=== PATIENT | female | born 1995 | race Two or more races ===

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

== ENCOUNTER 2017-04-17 19:49 | Emergency (ER) | payer OTHER ==
[~2017-04-17] VITALS: Ht 162.6 cm; Wt 66.2 kg
[2017-04-17] MEDS ORDERED: ACETAMINOPHEN 500 MG TABLET PO ONE ×2 (20:02→22:30)
[2017-04-17] MEDS ORDERED: IV NORMAL SALINE 1,000ML 1,000 ML IV ONE (20:30)
[2017-04-17] MEDS ORDERED: MAGNESIUM HYDROXIDE 2,400 MG/30 ML ORAL.SUSP. PO ONE (20:30)
[2017-04-17 21:49] VITALS: BP 121/81
--- NOTE | 2017-04-17 22:08 | PHYS DOC ---
Past History Past Medical History: No Pertinent History Past Surgical History: No Surgical History Smoking: Non-smoker Alcohol Use: None Drug Use: None Adult General Chief Complaint Chief Complaint: RECTAL BLEED HPI HPI Patient is a 21 year old F who presents with constipation, small amount of rectal bleeding, and moderate pain. She did deliver a baby 2 weeks ago and has had a history of constipation. She has not been taking daily stool softeners and has used pain medications occasionally. She did have a labial tear but no rectal involvement. Review of Systems Review of Systems Constitutional: Denies fever or chills [] Eyes: Denies change in visual acuity, redness, or eye pain [] HENT: Denies nasal congestion or sore throat [] Respiratory: Denies cough or shortness of breath [] Cardiovascular: No additional information not addressed in HPI [] GI: Negative except history of present illness : Denies dysuria or hematuria [] Musculoskeletal: Denies back pain or joint pain [] Integument: Denies rash or skin lesions [] Neurologic: Denies headache, focal weakness or sensory changes [] Endocrine: Denies polyuria or polydipsia [] Family History Family History Noncontributory Current Medications Current Medications Current Medications Medications (Trade) Dose Ordered Sig/Chris Start Time Stop Time Status Last Admin Dose Admin Acetaminophen (Tylenol) 500 mg STK-MED ONCE 04/17/17 20:02 04/17/17 20:03 DC Magnesium Hydroxide (Milk Of Magnesia) 2,400 mg 1X ONCE 04/17/17 20:30 04/17/17 20:31 DC 04/17/17 20:44 2,400 MG Sodium Chloride 1,000 ml @ 1,000 mls/hr 1X ONCE 04/17/17 20:30 04/17/17 21:29 DC 04/17/17 21:06 1,000 MLS/HR Allergies Allergies Allergies Coded Allergies Type Severity Reaction Last Updated Verified No Known Drug Allergies 01/08/16 No Physical Exam Physical Exam Constitutional: Well developed, well nourished, no acute distress, non-toxic appearance. [] HENT: Normocephalic, atraumatic, bilateral external ears normal, oropharynx moist, no oral exudates, nose normal. [] Eyes: PERRLA, EOMI, conjunctiva normal, no discharge. [] Neck: Normal range of motion, no tenderness, supple, no stridor. [] Cardiovascular:Heart rate regular rhythm, no murmur [] Lungs & Thorax: Bilateral breath sounds clear to auscultation [] Abdomen: Bowel sounds normal, soft, no tenderness, no masses, no pulsatile masses. [] The rectum was visualized without abnormalities Skin: Warm, dry, no erythema, no rash. [] Back: No tenderness, no CVA tenderness. [] Extremities: No tenderness, no cyanosis, no clubbing, ROM intact, no edema. [] Neurologic: Alert and oriented X 3, normal motor function, normal sensory function, no focal deficits noted. [] Psychologic: Affect normal, judgement normal, mood normal. [] Current Patient Data Vital Signs Vital Signs Date Time Temp Pulse Resp B/P (MAP) Pulse Ox O2 Delivery O2 Flow Rate FiO2 04/17/17 20:20 98.1 105 22 136/86 (103) 98 Room Air EKG EKG [] Radiology/Procedures Radiology/Procedures [] Course & Med Decision Making Course & Med Decision Making Pertinent Labs and Imaging studies reviewed. (See chart for details) She did have a bowel movement prior to receiving milk Magnesia. Her symptoms were moderately improved thereafter. Dragon Disclaimer Dragon Disclaimer This chart was dictated in whole or in part using Voice Recognition software in a busy, high-work load, and often noisy Emergency Department environment. It may contain unintended and wholly unrecognized errors or omissions. Departure Departure: Impression: Primary Impression: Constipation Disposition: 01 HOME, SELF-CARE Condition: STABLE Referrals: KENISHA ORTEGA DO (PCP) Patient Instructions: Constipation, Adult Additional Instructions: Liliana was seen in the emergency department for constipation. No emergency medical condition was found on history or physical exam. She did have a bowel movement with mild relief. She was given IV fluids. She was advised to use MiraLAX daily or twice daily in order to keep her stool soft. She is advised to follow-up with her primary care doctor in the next 3-5 days for further management. Problem Qualifiers Primary Impression: Constipation Constipation type: unspecified constipation type Qualified Codes: K59.00 - Constipation, unspecified ABNER MICHELLE MD Apr 17, 2017 22:08
== END 2017-04-17 22:17 | disposition home or self-care (01) ==
LOC: ER 19:49
DX: O90.89 Other complications of the puerperium, not elsewhere classified (principal); K59.00 Constipation, unspecified; K62.5 Hemorrhage of anus and rectum
CPT/HCPCS: 96360; 99284-25; J7030

== ENCOUNTER 2017-09-28 17:31 | Emergency (ER) | payer OTHER ==
[~2017-09-28] VITALS: Ht 160 cm; Wt 61.2 kg
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
[2017-09-28] MEDS ORDERED: HYDR-79 PO (18:03)
[2017-09-28] MEDS ORDERED: oxyCODONE/APAP 5/325 1 TAB TABLET PO ONE (18:15)
[2017-09-28 18:52] VITALS: BP 123/81
[2017-09-28] MEDS ORDERED: ACETAMINOPHEN 500 MG TABLET PO ONE (19:15)
== END 2017-09-28 19:04 | disposition home or self-care (01) ==
LOC: ER 17:31
DX: G43.909 Migraine, unspecified, not intractable, without status migrainosus (principal); M43.6 Torticollis; V49.9XXA Car occupant (driver) (passenger) injured in unspecified traffic accident, initial encounter; Y93.89 Activity, other specified; Y99.8 Other external cause status; Y92.89 Other specified places as the place of occurrence of the external cause
CPT/HCPCS: 99283

== ENCOUNTER 2018-04-10 00:32 | Emergency (ER) | payer OTHER ==
[~2018-04-10] VITALS: Ht 160 cm; Wt 61.2 kg
[~2018-04-10 00:32] MED LIST changes: +HYDR-79 PO
[2018-04-10] MEDS ORDERED: KETOROLAC 30 MG/ML VIAL. IV ONE (01:00)
[2018-04-10] MEDS ORDERED: ACETAMINOPHEN 500 MG TABLET PO ONE (01:00)
[2018-04-10] MEDS ORDERED: IV NORMAL SALINE 1,000ML 1,000 ML IV SCH (01:00)
[2018-04-10] MEDS ORDERED: ONDANSETRON PF 4 MG/2 ML VIAL. ONE (01:03)
[2018-04-10] MEDS ORDERED: ONDANSETRON PF 4 MG/2 ML VIAL. IV ONE (01:30)
[2018-04-10 01:53] LABS: BASO % 0 % (0-3); EOS % 0 % (0-3); HEMATOCRIT 39.8 % (36.0-47.0); HEMOGLOBIN 13.8 g/dL (12.0-15.5); LYMPH % 8 % (24-48); MEAN CORPUSCULAR HEMOGLOBIN 29 pg (25-35); MEAN CORPUSCULAR HGB CONC 35 g/dL (31-37); MEAN CORPUSCULAR VOLUME 84 fL (79-100); MONO # 0.9 x10^3/uL (0.0-1.1); MONO % 7 % (0-9); NEUT # 10.9 x10^3uL (1.8-7.7); NEUT % 85 % (31-73); PLATELET COUNT 209 x10^3/uL (140-400); RED BLOOD COUNT 4.76 x10^6/uL (3.50-5.40); RED CELL DISTRIBUTION WIDTH 13.4 % (11.5-14.5); WHITE BLOOD COUNT 12.9 x10^3/uL (4.0-11.0)
[2018-04-10 02:05] LABS: BILIRUBIN,URINE NEG (NEG); CLARITY,URINE CLEAR; COLOR,URINE STRAW; GLUCOSE,URINE NEG (NEG); NITRITE,URINE NEG (NEG); UROBILINOGEN,URINE 0.2 mg/dL (0.2 mg/dL)
[2018-04-10 02:06] LABS: BACTERIA,URINE FEW /HPF (0-FEW); RBC,URINE OCC /HPF (0-2); SQUAMOUS EPITHELIAL CELL,UR FEW /LPF; WBC,URINE OCC /HPF (0-4)
[2018-04-10 02:10] LABS: ALBUMIN 3.4 g/dL (3.4-5.0); ALBUMIN/GLOBULIN RATIO 0.9 (1.0-1.7); CALCIUM 8.6 mg/dL (8.5-10.1); CREATININE 0.8 mg/dL (0.6-1.0); GFR 91.4; POTASSIUM 3.7 mmol/L (3.5-5.1); TOTAL BILIRUBIN 0.2 mg/dL (0.2-1.0); TOTAL PROTEIN 7.2 g/dL (6.4-8.2)
[2018-04-10 02:19] LABS: INFLUENZA A PATIENT NEGATIVE (NEGATIVE); INFLUENZA B PATIENT NEGATIVE (NEGATIVE)
[2018-04-10] MEDS ORDERED: IV NORMAL SALINE 50ML 50 ML ONE (02:33)
[2018-04-10] MEDS ORDERED: cefTRIAXone SODIUM 1 GM VIAL IV ONE (02:34)
[2018-04-10] MEDS ORDERED: [UNRECOGNIZED DRUG - OTHER] (02:47)
[2018-04-10] MEDS ORDERED: CEFD300C PO (04:58)
[2018-04-10] MEDS ORDERED: ONDA4TAB10 SL (04:58)
--- NOTE | 2018-04-10 04:59 | PHYS DOC ---
Past History Past Medical History: Anemia Past Surgical History: No Surgical History Smoking: Non-smoker Alcohol Use: None Drug Use: None Adult General Chief Complaint Chief Complaint: FLU SYMPTOM HPI HPI Patient is a 22-year-old female who presents with report of fever, nausea, vomiting, diarrhea, body aches and generalized weakness that is been present for close to a week. Patient states that she had gotten a flu shot last week and shortly after getting the flu shot she became ill. Patient states that her fevers have been running up to 103. She indicates she has been having a difficult time keeping fluids down due to the vomiting. She does complain of a headache that she rates at a 7 out of 10. She also complains of sore throat. Patient states that nothing has been improving her symptoms. Review of Systems Review of Systems Constitutional: Positive fever and chills[] Eyes: Denies change in visual acuity, redness, or eye pain [] HENT: Positive congestion and sore throat[] Respiratory: Positive dry cough[] Cardiovascular: No additional information not addressed in HPI [] GI: Denies abdominal pain. Complains of nausea with vomiting and diarrhea. [] : Denies dysuria or hematuria [] Musculoskeletal: Complains of diffuse body aches[] Integument: Denies rash or skin lesions [] Neurologic: Complains of headache[] All other systems were reviewed and found to be within normal limits, except as documented in this note. Current Medications Current Medications Current Medications Medications (Trade) Dose Ordered Sig/Chris Start Time Stop Time Status Last Admin Dose Admin Acetaminophen (Tylenol) 1,000 mg 1X ONCE 04/10/18 01:00 04/10/18 01:01 DC 04/10/18 01:17 1,000 MG Ceftriaxone Sodium 1 gm/ Sodium Chloride 50 ml @ 100 mls/hr 1X ONCE 04/10/18 03:00 04/10/18 03:30 DC 04/10/18 02:43 100 MLS/HR Ceftriaxone Sodium (Rocephin) 1 gm STK-MED ONCE 04/10/18 02:34 04/10/18 02:35 DC Ketorolac Tromethamine (Toradol 30mg Vial) 30 mg 1X ONCE 04/10/18 01:00 04/10/18 01:01 DC 04/10/18 01:16 30 MG Ondansetron HCl (Zofran) 4 mg STK-MED ONCE 04/10/18 01:03 04/10/18 01:04 DC Sodium Chloride 50 ml @ As Directed STK-MED ONCE 04/10/18 02:33 04/10/18 02:34 DC Allergies Allergies Allergies Coded Allergies Type Severity Reaction Last Updated Verified amoxicillin Allergy Intermediate 04/10/18 Yes Physical Exam Physical Exam Constitutional: Well developed, well nourished, no acute distress, non-toxic appearance. [] HENT: Normocephalic, atraumatic, bilateral external ears normal, oropharynx moist, no oral exudates, nose normal. [] Eyes: PERRLA, EOMI, conjunctiva normal, no discharge. [] Neck: Normal range of motion, no tenderness, supple, no stridor. [] Cardiovascular:Heart rate regular rhythm, no murmur [] Lungs & Thorax: Bilateral breath sounds clear to auscultation [] Abdomen: Bowel sounds normal, soft, no tenderness, no masses, no pulsatile masses. [] Skin: Warm, dry, no erythema, no rash. [] Back: No tenderness, no CVA tenderness. [] Extremities: No tenderness, no cyanosis, no clubbing, ROM intact, no edema. [] Neurologic: Alert and oriented X 3, normal motor function, normal sensory function, no focal deficits noted. [] Psychologic: Affect normal, judgement normal, mood normal. [] Current Patient Data Vital Signs Vital Signs Date Time Temp Pulse Resp B/P (MAP) Pulse Ox O2 Delivery O2 Flow Rate FiO2 04/10/18 02:58 100.4 84 18 98 Room Air Lab Results Laboratory Tests Test 04/10/18 01:17 04/10/18 01:30 White Blood Count 12.9 x10^3/uL (4.0-11.0) H Red Blood Count 4.76 x10^6/uL (3.50-5.40) Hemoglobin 13.8 g/dL (12.0-15.5) Hematocrit 39.8 % (36.0-47.0) Mean Corpuscular Volume 84 fL (79-100) Mean Corpuscular Hemoglobin 29 pg (25-35) Mean Corpuscular Hemoglobin Concent 35 g/dL (31-37) Red Cell Distribution Width 13.4 % (11.5-14.5) Platelet Count 209 x10^3/uL (140-400) Neutrophils (%) (Auto) 85 % (31-73) H Lymphocytes (%) (Auto) 8 % (24-48) L Monocytes (%) (Auto) 7 % (0-9) Eosinophils (%) (Auto) 0 % (0-3) Basophils (%) (Auto) 0 % (0-3) Neutrophils # (Auto) 10.9 x10^3uL (1.8-7.7) H Lymphocytes # (Auto) 1.0 x10^3/uL (1.0-4.8) Monocytes # (Auto) 0.9 x10^3/uL (0.0-1.1) Eosinophils # (Auto) 0.0 x10^3/uL (0.0-0.7) Basophils # (Auto) 0.0 x10^3/uL (0.0-0.2) Sodium Level 136 mmol/L (136-145) Potassium Level 3.7 mmol/L (3.5-5.1) Chloride Level 101 mmol/L (98-107) Carbon Dioxide Level 28 mmol/L (21-32) Anion Gap 7 (6-14) Blood Urea Nitrogen 14 mg/dL (7-20) Creatinine 0.8 mg/dL (0.6-1.0) Estimated GFR (Cockcroft-Gault) 91.4 BUN/Creatinine Ratio 18 (6-20) Glucose Level 94 mg/dL (70-99) Lactic Acid Level 1.8 mmol/L (0.4-2.0) Calcium Level 8.6 mg/dL (8.5-10.1) Total Bilirubin 0.2 mg/dL (0.2-1.0) Aspartate Amino Transferase (AST) 30 U/L (15-37) Alanine Aminotransferase (ALT) 43 U/L (14-59) Alkaline Phosphatase 105 U/L (46-116) Total Protein 7.2 g/dL (6.4-8.2) Albumin 3.4 g/dL (3.4-5.0) Albumin/Globulin Ratio 0.9 (1.0-1.7) L Influenza Type A (Rapid) Negative (NEGATIVE) Influenza Type B (Rapid) Negative (NEGATIVE) Group A Streptococcus Rapid Negative (NEGATIVE) Urine Collection Type Void Urine Color Straw Urine Clarity Clear Urine pH 7.0 Urine Specific Deloit 1.020 Urine Protein Neg (NEG-TRACE) Urine Glucose (UA) Neg mg/dL (NEG) Urine Ketones (Stick) Neg mg/dL (NEG) Urine Blood Neg (NEG) Urine Nitrite Neg (NEG) Urine Bilirubin Neg (NEG) Urine Urobilinogen Dipstick 0.2 mg/dL (0.2 mg/dL) Urine Leukocyte Esterase Neg (NEG) Urine RBC Occ /HPF (0-2) Urine WBC Occ /HPF (0-4) Urine Squamous Epithelial Cells Few /LPF Urine Bacteria Few /HPF (0-FEW) EKG EKG [] Radiology/Procedures Radiology/Procedures [] Course & Med Decision Making Course & Med Decision Making Pertinent Labs and Imaging studies reviewed. (See chart for details) [] Dragon Disclaimer Dragon Disclaimer This electronic medical record was generated, in whole or in part, using a voice recognition dictation system. Departure Departure: Impression: Primary Impression: Febrile illness, acute Disposition: 01 HOME, SELF-CARE Condition: STABLE Referrals: KENISHA ORTEGA DO (PCP) Patient Instructions: Fever, Adult, Nausea and Vomiting Scripts Ondansetron (ZOFRAN ODT) 4 Mg Tab.rapdis 1 TAB SL Q8HRS, #15 TAB Prov: IQRA LOVE Jr., DO 04/10/18 Cefdinir (CEFDINIR) 300 Mg Capsule 1 CAP PO BID, #20 CAP Prov: IQRA LOVE Jr., DO 04/10/18 IQRA LOVE Jr. DO Apr 10, 2018 04:59
--- NOTE | 2018-04-10 06:33 | RAD ---
PORTABLE CHEST 1V Clinical History: fever Technique: AP view of the chest was obtained at 04/10/2018 12:22 AM. Comparison: None. Findings: The cardiomediastinal silhouette is normal. The pulmonary vasculature is normal. The lungs and pleural margins are clear. Impression: No evidence of an acute cardiopulmonary process. Electronically signed by: Alfredo Hercules III, MD (04/10/2018 6:30 AM) [facility]
[2018-04-10 06:55] VITALS: BP 120/4
== END 2018-04-10 06:55 | disposition home or self-care (01) ==
LOC: ER 00:32
DX: R50.9 Fever, unspecified (principal); R11.2 Nausea with vomiting, unspecified; R19.7 Diarrhea, unspecified; R51 Headache; M79.10 Myalgia, unspecified site; Z86.2 Personal history of diseases of the blood and blood-forming organs and certain disorders involving the immune mechanism; Z88.1 Allergy status to other antibiotic agents
CPT/HCPCS: 36415; 71045; 80053; 81001; 83605; 85025; 87040; 87070; 87804; 87880; 96361; 96365; 96375; 99285; J0696; J1885; J2405; J7030